=== PATIENT | male | born 1975 | race African-American/Black ===

== ENCOUNTER 2021-06-13 23:06 | Inpatient (IN) | payer OTHER ==
[~2021-06-13] VITALS: Ht 175.3 cm; Wt 70.8 kg
--- NOTE | 2021-06-13 23:14 | NUR ---
OLLIE 41 FROM HOMELESS ASSISTED FOR FOUND UNRESPONSIVE ON THE GROUND DUE TO OVERDOSE ON UNKNOWN DRUG. PT RECIEVED 4MG NASL NARCAN 2MG IV NARCAN RECEPTIONIST/TELEPHONE OPERATOR. PT AXO X 0 UPON ARRIVAL AND AGITATED. PT APPEARS TO HAVE ASPIRATED VOMITTUS UPON ARRIVAL AND CRACKLES NOTED BILATERALLY. PT HYPOXIC UPON ARRIVAL PLACED ON 15LPM NRB SATTING 75% ABND TACHY AT 135. PT CHANGED INTO A GOWN AND PLACED ON CHILD DEVELOPMENT INSTRUCTOR AND MD WAS AT THE BEDSIDE FOR EVALUATION.
[2021-06-13] MEDS ORDERED: HALOPERIDOL LACTATE INJ 5 MG/ML VIAL ONE (23:18)
[2021-06-13] MEDS ORDERED: ONDANSETRON HCL/PF 4 MG/2 ML VIAL ONE (23:23)
[2021-06-13] MEDS ORDERED: LIDOCAINE 2% JEL UROJET 10 ML MM ONE ×2 (23:23→23:30)
[2021-06-13] MEDS ORDERED: NALOXONE PREFILLED SYRINGE 2 MG/2 ML SYRINGE ONE (23:24)
[2021-06-13] MEDS ORDERED: IV NS 0.9% 1,000 ML BAG IV ONE (23:30)
[2021-06-13] MEDS ORDERED: HALOPERIDOL LACTATE INJ 5 MG/ML VIAL IM ONE (23:30)
[2021-06-13] MEDS ORDERED: ONDANSETRON HCL/PF 4 MG/2 ML VIAL IVP ONE (23:30)
[2021-06-13] MEDS ORDERED: NALOXONE HCL 4 MG in IV NS 0.9% 240 ML IV PRN (23:30)
--- NOTE | 2021-06-13 23:51 | NUR ---
RT PAGED FOR ABG
[2021-06-14] VITALS (38 sets, daily range): BP systolic 97–153; BP diastolic 63–92
[2021-06-14] LABS: BASOPHILS # (AUTO) 0.1 K/uL (0.0-0.2); BASOPHILS % (AUTO) 1.3 % (0.0-2.0); HEMATOCRIT 53 % (39-51); HEMOGLOBIN 17.3 g/dL (13.5-17.5); LYMPHOCYTES # (AUTO) 4.2 K/uL (0.8-4.8); LYMPHOCYTES % (AUTO) 48.7 % (20.0-44.0); MEAN CORPUSCULAR HGB CONC 33 g/dl (31.0-36.0); MEAN CORPUSCULAR VOLUME 94 fL (80-96); MONOCYTES # (AUTO) 0.1 K/uL (0.1-1.30); MONOCYTES % (AUTO) 0.8 % (2.0-12.0); NEUTROPHILS % (AUTO) 46.2 % (43.0-81.0); PLATELET COUNT (AUTO) 363 K/uL (150-450); RED BLOOD CELL COUNT(AUTO) 5.67 MIL/uL (4.5-6.0); WHITE BLOOD COUNT (AUTO) 8.7 K/uL (4.3-11.0)
[2021-06-14 00:01] LABS: BILIRUBIN,URINE Negative (NEGATIVE); COLOR,URINE YELLOW (YELLOW); LEUKOCYTE ESTERASE ,URINE Negative (NEGATIVE); NITRITE, URINE Negative (NEGATIVE); PROTEIN,URINE 100 mg/dl (NEGATIVE); UGLUCOSE 100 MG/DL mg/dL (NEGATIVE); UROBILINOGEN,URINE 0.2 EU/dL (0.2)
[2021-06-14] MEDS ORDERED: PROPOFOL 100 ML ONE (00:08)
--- NOTE | 2021-06-14 00:12 | NUR ---
RT Notes Pt orally intubated by ER with 7.0m ETT secured at 21cm at the lip line. Color change on CO2 detector noted. Mist in tube noted. Equally chest rise noted. Pt placed on mech vent on ordered settings AC, RR 14, VT 550, FI02 100%, PEEP +5. DENTAL THERAPIST done. Pt suctioned large amount of black to dark brown secretions. Will draw ABG in 30 mins per MD orders. Alarms set and audible. Ambubag at bedside. Vent plugged into red outlet. Will cont to monitor. Addendum: 06/14/21 at 0146 by TIN LARA RT Amended: Links added.
--- NOTE | 2021-06-14 00:15 | NUR ---
0012 INTUBATED: SIZE 7.0 AND 21 @ THE LIP AC 14 TIDAL VOLUME 550 FIO2 100% PEEP 5
[2021-06-14 00:18] LABS: BACTERIA,URINE Few /HPF (None Seen); RBC,URINE 21-50 /HPF (0-2)
[2021-06-14 00:19] LABS: CALCIUM OXALATE CRYSTALS,UR Moderate /HPF (None Seen); CALCIUM, SERUM 8.5 mg/dL (8.5-10.1); CARBON DIOXIDE 20 mmol/L (21-32); CHLORIDE 102 mmol/L (98-107); GLUCOSE 279 mg/dL (74-106); POTASSIUM 3.9 mmol/L (3.5-5.1); SODIUM SERUM 142 mmol/L (136-145); SQUAMOUS EPITHELIAL CELL,UR Few /HPF (None Seen); UREA NITROGEN, BLOOD 14 mg/dL (7-18)
[2021-06-14 00:21] LABS: SERUM AMMONIA 67 umol/L (11-32)
[2021-06-14 00:30] LABS: ALANINE AMINOTRANSFERASE 102 U/L (12-78); ALBUMIN 3.8 g/dL (3.4-5.0); ALCOHOL, BLOOD 68 mg/dL (0-0); ALKALINE PHOSPHATASE 173 U/L (46-116); ASPARTATE AMINOTRANSFERASE 200 U/L (15-37); BILIRUBIN,DIRECT 0.1 mg/dL (0.0-0.2); BILIRUBIN,TOTAL 0.2 mg/dL (0.2-1.0); TOTAL PROTEIN, SERUM 7.6 g/dL (6.4-8.2)
[2021-06-14] MEDS ORDERED: HYDROCODONE/APAP 5/325MG TABLET PO PRN (00:30)
[2021-06-14] MEDS ORDERED: Z GUARD REMEDY 2 OZ OINT TP PRN (00:30)
[2021-06-14] MEDS ORDERED: ACETAMINOPHEN 325 MG TABLET PO PRN (00:30)
[2021-06-14] MEDS ORDERED: ONDANSETRON HCL/PF 4 MG/2 ML VIAL IVP PRN (00:30)
[2021-06-14] MEDS ORDERED: MAGNESIUM HYDROXIDE 30 ML UDC PO PRN (00:30)
[2021-06-14] MEDS ORDERED: ZOLPIDEM TARTRATE 5 MG TABLET PO PRN (00:30)
[2021-06-14] MEDS ORDERED: MAG HYDROX/AL HYDROX/SIMETH 30 ML UDC PO PRN (00:30)
--- NOTE | 2021-06-14 01:00 | NUR ---
rate of mech vent setting increase to 20 per MD orders Addendum: 06/14/21 at 0147 by TIN LARA RT Amended: Links added.
[2021-06-14 01:03] LABS: ABG BASE EXCESS -17.3 mmol/L; ABG PH 7.008 (7.350-7.450); COHb 1.7 % (0.5-1.5); MetHb 0.3 % (0.0-1.5); O2Hb 92.1 % (94.0-97.0); SITE, ABG Left Radial
[2021-06-14 01:07] LABS: THYROID STIMULATING HORMONE 2.012 uIU/mL (0.358-3.74)
--- NOTE | 2021-06-14 01:09 | NUR ---
PT TAKEN TO CT
--- NOTE | 2021-06-14 01:22 | NUR ---
PT RETURNED FROM CT
--- NOTE | 2021-06-14 01:35 | NUR ---
PAGED DR MAURICIO FOR UPDATE PER DR JIN'S ORDER
--- NOTE | 2021-06-14 01:52 | NUR ---
ROOM 253
[2021-06-14] MEDS ORDERED: IV NS 0.9% 50 ML IV SCH (02:00)
--- NOTE | 2021-06-14 02:00 | NUR ---
REPORT GIVEN TO NOLA
[2021-06-14] MEDS ORDERED: SUCCINYLCHOLINE CHLORIDE 20 MG/ML VIAL IV ONE ×2 (02:30→11:46)
[2021-06-14] MEDS ORDERED: PROPOFOL 100 ML IV ONE (02:30)
[2021-06-14] MEDS ORDERED: ZOSYN IVPB 3.375 G in IV D5W 50ml IV ONE (02:30)
[2021-06-14] MEDS ORDERED: ETOMIDATE 2 MG/ML VIAL IV ONE ×2 (02:30→11:46)
--- NOTE | 2021-06-14 02:34 | NUR ---
PT TRANSPORTED TO [facility] ON MONITOR PER ACLS PROTOCOL WITHOUT INCIDENT.
--- NOTE | 2021-06-14 02:35 | NUR ---
RECEIVED PT FROM ER VIA [facility] SEDATED ON ETT 7/ LIP 21 CM VENT SETTING PER MD FIO2 100% SPO2 99% NO SIGN OF RESPIRATORY DISTRESS NOTED, HAVE OGTUBE ON PLACE CLAMPED WITH COFFEE GROUND RESIDUAL NOTED, SAFELY TRANSFER FROM RKINSEY TO BED HOOKED TO BEDSIDE MONITOR WITH READING SINUS TACHY 120'S, V/S CHECKED AND RECORDED, PT HAVE RAC#18 AND LAC# 18 IV WITH ONGOING PROPOFOL @ 60 MCG/KG/MIN, HAVE SHIN CATHETER WITH YELLOW URINE DRAINING VIA GRAVITY, HEAD TO TOE ASSESSMENT DONE, CERVICAL COLLAR NOTED SAW SOME ABRASION ON PT CHIN, ADMISSION ASSESSMENT DONE UNABLE TO GET MORE INFORMATION FROM PT DUE TO PT IS SEDATED, PT IS HOMELESS WITH NO CONTACT, BILATERAL SOFT RESTRAINTS INITIATED FOR SELF EXTUBATION PRECAUTION WITH MD ORDER, BED ON LOWEST POSITION AND LOCKED SIDE RAILS UP X2 WILL CONT TO MONITOR
[2021-06-14] MEDS: PROPOFOL 100 ML IV PRN ×6 (02:49→22:04)
[2021-06-14] MEDS ORDERED: PIPERACILLIN /TAZOBACTAM 3.375 G VIAL IV ONE (02:56)
[2021-06-14] MEDS ORDERED: ENOXAPARIN SODIUM 40 MG/0.4 ML DISP.SYRIN SQ SCH (03:00)
[2021-06-14] MEDS ORDERED: VANCOMYCIN 1.5 GM in IV D5W 500ml IV ONE (03:00)
[2021-06-14] MEDS ORDERED: VANCOMYCIN 1 GM VIAL ONE ×2 (03:02)
[2021-06-14] MEDS: IV NS 0.9% 1,000 ML IV PRN (03:30)
--- NOTE | 2021-06-14 04:00 | NUR ---
ETT advance 2cm per MD order. ETT now secured at 23CM at the lip line. Addendum: 06/14/21 at 0422 by TIN LARA RT Amended: Links added.
[2021-06-14 05:26] LABS: ALBUMIN 3.2 g/dL (3.4-5.0); BILIRUBIN,DIRECT 0.1 mg/dL (0.0-0.2); BILIRUBIN,TOTAL 0.5 mg/dL (0.2-1.0); TOTAL PROTEIN, SERUM 6.2 g/dL (6.4-8.2)
[2021-06-14 06:35] LABS: ABG BASE EXCESS -2.7 mmol/L; ABG PCO2 48.5 mmHg (35.0-45.0); ABG PH 7.313 (7.350-7.450); ABG PO2 151.1 mmHg (75.0-100.0); COHb 0.4 % (0.5-1.5); MetHb 0.6 % (0.0-1.5); O2Hb 98.1 % (94.0-97.0); SITE, ABG Right Radial
--- NOTE | 2021-06-14 06:52 | NUR ---
PT ON BED SEDATED ON ETT/VENT SETTING PER MD FIO2 50% SPO2 98% STILL ON PROPOFOL 60 MCG/KG/MIN VIA LAC IV, SINUS TACHY ON MONITOR BED ON LOWEST POSITION AND LOCKED SIDE RAILS UP STILL ON BILATERAL SOFT WRIST RESTRAINTS FOR SELF EXTUBATION PRECAUTION, BWILL ENDORSED TO AM SHIFT NURSE
--- NOTE | 2021-06-14 07:30 | NUR ---
RN NOTES PT FOUND SEMI EDDY'S DISPLAYING NO S/S OF DISTRESS, FLACC = 0 AND BILATERAL RISE AND FALL OF THE CHEST OBSERVED WHILE PT IS INTUBATED ON MECHANICAL VENT. KAUSHAL'S 3 SEDATION LEVEL. PT IS RESTRAINED BILATERAL SOFTWRISTS, PULSES PALAPTED BILATERALLY AND CAP REFILL < 3 SECONDS BILTERALLY. R AC 18G AND L AC 18G IV PATIENT AND INTACT. MILD ABRASIONS OBSERVED ON FACE (CHIN). SHIN CATH BELOW PATIENT DRAINING BY GRAVITY. RESIDUAL OF GASTRIC CONTENT IS APPROX. 15 ML. VSS, RN WILL MONITOR AND TREAT THROUGHOUT SHIFT. SAFETY MEASURES IN PLACE, BED LOCKED AND IN LOWEST POSITION, SIDE RAILS UPX3, CALL LIGHT WITHIN REACH, BED ALARM ARMED.
[2021-06-14] MEDS: PANTOPRAZOLE 40 MG VIAL IV SCH (08:42)
[2021-06-14] MEDS: LACTULOSE 10 G/15 ML UDC (PYXIS) GT SCH ×2 (08:42→17:54)
[2021-06-14] MEDS ORDERED: AZITHROMYCIN 500 MG in IV D5W 250 ML IV SCH (09:00)
[2021-06-14] MEDS ORDERED: CEFTRIAXONE 1 G in IV D5W 50 ML IV SCH (09:00)
[2021-06-14] MEDS: PIPERACILLIN /TAZOBACTAM 3.375 G in IV D5W 100 ML IV SCH ×2 (10:25→17:55)
--- NOTE | 2021-06-14 12:34 | NUR ---
vent changes below per dr. Saenz for weaning trial: CPAP 5 PS 15 RN AWARE ON VENT CHANGES MADE. Addendum: 06/14/21 at 1235 by CALVIN DANG RT Amended: Links added.
[2021-06-14 13:35] LABS: ABG BASE EXCESS -4.1 mmol/L; ABG OXYGEN SATURATION 97.8 % (92.0-98.5); ABG PCO2 51.1 mmHg (35.0-45.0); ABG PH 7.277 (7.350-7.450); COHb 0.2 % (0.5-1.5); MetHb 0.5 % (0.0-1.5); O2Hb 97.1 % (94.0-97.0); SITE, ABG Right Radial
--- NOTE | 2021-06-14 13:46 | NUR ---
BACK TO AC MODE PER DR. AVILA Addendum: 06/14/21 at 1346 by CALVIN DANG RT Amended: Links added.
[2021-06-14] MEDS: VANCOMYCIN 1 GM in IV D5W 250 ML IV SCH (16:16)
--- NOTE | 2021-06-14 19:00 | NUR ---
RN NOTES PT FOUND SEMI FOWLERS DISPLAYING NO S/S OF DISTRESS, FLACC = 0 AND BILATERAL RISE AND FALL OF THE CHEST IS OBSERVED. KAUSHAL'S = 3. R FA 20G AND L AC 18G IV PATIENT AND INTACT. SHIN CATH BELOW PATIENT DRAINING BY GRAVITY. BILATERAL SOFT RESTRAINTS APPLIED, PULSES PALPATED BILATERALLY, CAP REFILL < 3 SECONDS BILATERALLY. VSS, REPORT AND SBAR GIVEN TO CORRECTION OFFICER RN. ALL QUESTIONS ANSWERED. SAFETY MEASURES IN PLACE, BED LOCKED AND IN LOWEST POSITION, SIDE RAILS UPX3, CALL LIGHT WITHIN REACH, BED ALARM ARMED. PT ENDORSED IN STABLE CONDITION FOR SAMANTHA.
--- NOTE | 2021-06-14 20:05 | NUR ---
RECEIVED PT INTUBATED 7.0 ETT SECURED AT 23CM AT THE LIP. NO RESP DISTRESS NOTED, PT TOLERATING VENT SETTINGS. VENT ALARMS SET AND AUDIBLE. AMBU BAG AT BEDSIDE. CONTINUE TO MONITOR. Addendum: 06/14/21 at 2007 by TARA MEYER RT Amended: Links added.
[2021-06-14] MEDS: ENOXAPARIN SODIUM 40 MG/0.4 ML DISP.SYRIN SQ SCH (21:48)
[2021-06-15] VITALS (44 sets, daily range): BP systolic 110–169; BP diastolic 82–113
[2021-06-15] MEDS: IV NS 0.9% 1,000 ML IV PRN ×2 (00:39→15:56)
[2021-06-15] MEDS: PROPOFOL 100 ML IV PRN ×6 (00:54→21:42)
[2021-06-15] MEDS: PIPERACILLIN /TAZOBACTAM 3.375 G in IV D5W 100 ML IV SCH ×3 (01:59→18:07)
[2021-06-15] MEDS: VANCOMYCIN 1 GM in IV D5W 250 ML IV SCH ×3 (03:58→23:05)
[2021-06-15 05:03] LABS: BASOPHILS % (AUTO) 0.3 % (0.0-2.0); EOSINOPHILS % (AUTO) 1.9 % (0.0-6.0); HEMATOCRIT 43 % (39-51); HEMOGLOBIN 14.6 g/dL (13.5-17.5); LYMPHOCYTES # (AUTO) 1.1 K/uL (0.8-4.8); MEAN CORPUSCULAR HGB CONC 34 g/dl (31.0-36.0); MEAN CORPUSCULAR VOLUME 91 fL (80-96); MONOCYTES # (AUTO) 0.4 K/uL (0.1-1.30); MONOCYTES % (AUTO) 3.5 % (2.0-12.0); NEUTROPHILS # (AUTO) 9.2 K/uL (1.8-8.9); NEUTROPHILS % (AUTO) 84.3 % (43.0-81.0); PLATELET COUNT (AUTO) 203 K/uL (150-450); RED BLOOD CELL COUNT(AUTO) 4.72 MIL/uL (4.5-6.0); WHITE BLOOD COUNT (AUTO) 10.9 K/uL (4.3-11.0)
[2021-06-15 05:29] LABS: THYROID STIMULATING HORMONE 1.331 uIU/mL (0.358-3.74)
[2021-06-15 05:42] LABS: CALCIUM, SERUM 8.5 mg/dL (8.5-10.1); CREATININE 1.4 mg/dL (0.6-1.3); MAGNESIUM 2.2 mg/dL (1.8-2.4); PHOSPHORUS 2.6 mg/dL (2.5-4.9); POTASSIUM 3.6 mmol/L (3.5-5.1)
--- NOTE | 2021-06-15 07:30 | NUR ---
RN AM NOTES PT IN BED, SEMI EDDY'S DISPLAYING NO S/S OF DISTRESS, FLACC = 0 AND BILATERAL RISE AND FALL OF THE CHEST OBSERVED WHILE PT IS INTUBATED ON MECHANICAL VENT. KAUSHAL'S 3 SEDATION LEVEL. PT IS RESTRAINED BILATERAL SOFTWRISTS, PULSES PALPATED BILATERALLY AND CAP REFILL < 3 SECONDS BILATERALLY. R AC 18G AND L AC 18G IV PATIENT AND INTACT. MILD ABRASIONS OBSERVED ON FACE (CHIN). SHIN CATH BELOW PATIENT DRAINING BY GRAVITY. RESIDUAL OF GASTRIC CONTENT IS APPROX. 15 ML. VSS, RN WILL MONITOR AND TREAT THROUGHOUT SHIFT. SAFETY MEASURES IN PLACE, BED LOCKED AND IN LOWEST POSITION, SIDE RAILS UPX3, CALL LIGHT WITHIN REACH, BED ALARM ARMED. WILL CONTINUE TO MONITOR
[2021-06-15] MEDS: LACTULOSE 10 G/15 ML UDC (PYXIS) GT SCH ×2 (09:20→18:07)
[2021-06-15] MEDS: PANTOPRAZOLE 40 MG VIAL IV SCH (09:20)
--- NOTE | 2021-06-15 09:36 | NUR ---
RN NOTES DR. NDIAYE NOTIFIED, PT'S BP IS 157/101, NO BP MAINTENANCE, PER DR. NDIAYE IT'S OK, NNO.
--- NOTE | 2021-06-15 19:00 | NUR ---
rn notes PATIENT AWAKE AND AGITATED. INCREASED PROPOFOL TO 50 MCG
--- NOTE | 2021-06-15 19:06 | NUR ---
RN NOTES PATIENT VERY COMBATIVE. PROPOFOL INCREASED TO 70 MCG
--- NOTE | 2021-06-15 19:28 | NUR ---
RN NOTES ALL NEEDS MET AT THIS TIME. PATIENT STABLE. NO SOB, NOT IN ANY DISTRESS. TOLERATING VENT SETTING WELL. SAFETY MEASURES IN PLACE. ENDORSED TO NEXT SHIFT FOR SAMANTHA.
--- NOTE | 2021-06-15 19:40 | NUR ---
APPETIZER PACKER OPENING NOTE REC'D PT IN BED, AGITATED, COMBATIVE, PT PROPOFOL NOW AT 70MCG/KG/MIN. AT THIS TIME PT IS SEDATED, ORALLY INTUBATED, ON MECHANICAL VENTILATION, AC 20 TIDAL VOL 550 FIO2 40% PEEP 5 TOLERATING WELL, O2 SAT 100% NO S/S OF RESP DISTRESS NOTED, PT HAS SHIN CATH DRAINING TO GRAVITY, PT IV SITES FLUSHED, PATENT. IVF RUNNING AT 75ML/HR ORDERED. ORAL CARE DONE, PT AFEBRIL. SAFETY MEASURES IN PLACE HOB ELEVATED. SIDE RAILS UP X3, BED LOCKED IN LOWEST POSITION, SOFT SHELBI WRIST RESTRAINTS IN PLACE, SKIN CIRCULATION CHECKED. WILL CONT TO MONITOR PT THROUGHOUT SHIFT.
--- NOTE | 2021-06-15 20:03 | NUR ---
RECEIVED PT INTUBATED 7.0 ETT SECURED AT 23CM AT THE LIP. NO RESP DISTRESS NOTED, PT TOLERATING VENT SETTINGS. VENT ALARMS SET AND AUDIBLE. AMBU BAG AT BEDSIDE. CONTINUE TO MONITOR. Addendum: 06/15/21 at 2002 by TARA MEYER RT Amended: Links added.
[2021-06-15] MEDS: ENOXAPARIN SODIUM 40 MG/0.4 ML DISP.SYRIN SQ SCH (21:06)
[2021-06-16] VITALS (39 sets, daily range): BP systolic 102–155; BP diastolic 69–107
[2021-06-16] MEDS: PROPOFOL 100 ML IV PRN ×9 (00:10→21:55)
[2021-06-16] MEDS: PIPERACILLIN /TAZOBACTAM 3.375 G in IV D5W 100 ML IV SCH ×3 (01:12→17:05)
[2021-06-16 04:39] LABS: BASOPHILS % (AUTO) 0.3 % (0.0-2.0); EOSINOPHILS % (AUTO) 3.6 % (0.0-6.0); HEMATOCRIT 43 % (39-51); HEMOGLOBIN 14.6 g/dL (13.5-17.5); LYMPHOCYTES # (AUTO) 0.8 K/uL (0.8-4.8); LYMPHOCYTES % (AUTO) 6.7 % (20.0-44.0); MEAN CORPUSCULAR HGB CONC 34 g/dl (31.0-36.0); MEAN CORPUSCULAR VOLUME 91 fL (80-96); MONOCYTES # (AUTO) 0.4 K/uL (0.1-1.30); MONOCYTES % (AUTO) 3.7 % (2.0-12.0); NEUTROPHILS # (AUTO) 9.6 K/uL (1.8-8.9); NEUTROPHILS % (AUTO) 85.7 % (43.0-81.0); PLATELET COUNT (AUTO) 221 K/uL (150-450); RED BLOOD CELL COUNT(AUTO) 4.75 MIL/uL (4.5-6.0); WHITE BLOOD COUNT (AUTO) 11.2 K/uL (4.3-11.0)
[2021-06-16] MEDS: IV NS 0.9% 1,000 ML IV PRN ×2 (04:52→17:10)
[2021-06-16 04:59] LABS: ALBUMIN 2.7 g/dL (3.4-5.0); BILIRUBIN,TOTAL 0.8 mg/dL (0.2-1.0); CALCIUM, SERUM 8.6 mg/dL (8.5-10.1); POTASSIUM 3.7 mmol/L (3.5-5.1); TOTAL PROTEIN, SERUM 6.5 g/dL (6.4-8.2)
[2021-06-16] MEDS ORDERED: IV NS 0.9% 250 ML IV PRN (06:00)
--- NOTE | 2021-06-16 06:43 | NUR ---
RN CLOSING NOTE PT REMAINS ON SEDATION AT 75 MCG/KG/MIN, TITRATED TO KEEP PT COMFORTABLE, CALM, SEDATED. BED BATH DONE, TURN AND REPOSITIONED Q2HRS. PT REMAINS ON RESTRAINTS TO PROTECT FROM INJURY. ORAL CARE PERFORMED.PT REMAINS AFEBRILE. AT THIS TIME IVF STILL RUNNING ORDERED. SAFETY MEASURES IN PLACE. ALL DUE MEDS GIVEN ORDERED. NO S/S OF PAIN. HOB ELEVATED SIDE RAILS UP X2 BED LOCKED IN LOWEST POSITION. VENT SETTINGS REMAIN UNCHANGED. PT TOLERATING SETTINGS AT THIS TIME. NO RESP DISTRESS NOTED. PT HR ST 110-120S. WILL ENDORSE TO DAY SHIFT FOR CONTINUATION OF CARE. WILL MONITOR UNTIL END OF SHIFT.
--- NOTE | 2021-06-16 07:00 | NUR ---
WOUND CARE CONSULT: REVIEWED CHART, NURSING DOCUMENTATION AND PHOTO WHICH INDICATES DRY ABRASION TO CHIN, PRESENT ON ADMISSION. RECOMMENDATIONS MADE FOR SKIN PROTECTION. DISCUSSED WITH NURSING STAFF. CURRENT RHIANNA SCORE IS 15. WILL SEE PRN. IN AGREEMENT WITH PLAN OF CARE.
--- NOTE | 2021-06-16 07:30 | NUR ---
BUILDING MECHANIC OPENING NOTES Patient received sedated and on mechanical ventilator settings of ac 20, TV 550, Fi02 of 40% and PEEP of 5. Patient is running propofol at 75 mcg/kg/min and Normal saline at 75 ml/hour zoë left ac 18 gauze. Patient also noted with right forearm 20 gauze saline lock. Gusman cath noted with clear yellow urine.Bilateral wrist restraints noted to both wrists. No s/s of skin breakdown. Per report OGT clamped. Will continue to monitor. Call light with in reach.
[2021-06-16] MEDS: LACTULOSE 10 G/15 ML UDC (PYXIS) GT SCH ×2 (08:20→16:40)
[2021-06-16] MEDS: VANCOMYCIN 1 GM in IV D5W 250 ML IV SCH (08:20)
[2021-06-16] MEDS: PANTOPRAZOLE 40 MG TABLET.DR PO SCH (08:20)
--- NOTE | 2021-06-16 09:00 | NUR ---
Patient's diprivan titrated per Dr Jefferson's orders. Patient currently at 50 mcg/kg/min and will monitor.
--- NOTE | 2021-06-16 10:00 | NUR ---
Per Dr Jefferson to keep patient sedated and if patient is agitated to increased diprivan as needed. Patient currenlt stable on 50 mcg/kg/min. Patient will be monitored.
[2021-06-16] MEDS ORDERED: JEVITY 1.2 CAL 1,000 ML BOTTLE PEG PRN (11:30)
--- NOTE | 2021-06-16 12:03 | NUR ---
Patient's diprivan titrated to 80 mcg/kg/min due to patient's behavior and restlessness. Patient noted with kicking the bed with his legs. Patient provided decreased stimuli. Will monitor.
--- NOTE | 2021-06-16 13:49 | NUR ---
"SW attempted to meet with pt. Pt. is currently sedated, SW was not able to interview pt. SW spoke with pt.'s nurse and notified her that SW left resources in pt.'s chart [Homeless resources, Homeless waiver, and substance abuse resources]. Resources provided: Year-round shelters: [place] [address] [place] [address] ; [facility] [place] [address] [place] [address]; [place] [facility] [id number] [facility] [address] Winter Shelters: [facility] Provider: [facility] [place] Address: [address] [place], [address] # of Beds: 47 Population Served: [facility] 6 | [facility] [place] Mejia [place] Provider: [facility] Address: [address], [address] # of Beds: 66 Population Served: [facility] [place] Provider: First [facility] Serve Address: [address] [facility], [address] # of Beds: 56 Population Served: [facility] Terence [place] Provider: /[facility] Address: [address] [place] [address], [address] # of Beds: 49 Population Served: [facility] 8 | [facility] Provider: [facility] to Serve Address: [address] [facility], [address] # of Beds: 37 Population Served: [facility] Hygiene: [facility]: [address] [place] ; [facility] [address] [facility] ; [facility] [address] [place] [address] . Food Resources: [place] [facility] at [facility]- [address] [place]; Meet Each Need with Dignity ([facility]) [address] [address] [place]; [facility] Food [facility] [address] [place] [facility]; [facility] [address] [place]. Mental Health resources provided: [facility] [address] [place], [place] [phone] ; [facility] [address] [facility] [address], [place] [address] ; [facility] Mental [facility] [address] [place], [place] [phone] ; [facility] [address] [place], [place] [phone] Healthcare Clinics: [facility] [address] [facility], [address] [place]. [place] ; [facility] [address] [facility] [address] [place] [address]; [facility] [address] [facility] [place] [address] [phone] Counseling--Outpatient [facility] [address] [facility], [place] [address] (Specializes in in-depth psychotherapy for emotional distress: anxiety, depression, interpersonal conflicts, life transitions, childhood abuse) [facility] [address] [place] [address] (Assist with solving problem marital difficulties, separation & divorce, aging parents, & grief, chronic & terminal illness) [facility] [address] [place] [address] (Deal with loss & grief, anxiety, marital difficulties) Homebound/Mental Health Services [address] [facility], [address] [place], [place] [phone] (Provide in-home mental services to people who are incapable of leaving their homes) [facility]eds of the Elderly Senior Service/Resource Center [address] [place] [address] [facility] [address] [facility] [place] [address] PSYCHIATRIC OUTPATIENT SERVICES [facility] Partial Hospitalization and Intensive Outpatient Program (Managed Care and [place] Only)[address] [place] [address] [facility] [phone] [facility] Partial Hospitalization and Outpatient [address] [place], [place] [phone] [facility] [place] [id number] [facility] [address] [place], [place] [phone] [facility] Partial Hospitalization and Outpatient [id number] eliUniversity of Maryland Rehabilitation & Orthopaedic Instituteflora, [phone] Substance Abuse resources provided included: [facility] Substance Abuse Self-Helpline ([facility]) ; C[facility]HELP [address] [facility]. [place] [address] ; [facility] [address] [facility] [address] ; [facility] Rehabilitation Program [address] [place] [address] vd[facility] [address] ; [facility] [address] [facility] [phone] ; [facility] [address] [facility] [address] ; [facility] [address] [facility] [address] ; [facility] Substance Abuse Helpline([facility])-[facility] ; [facility] ; [facility] [place]; [facility] [place]; [facility] [place]; [facility] [place]; [place] [facility]; [facility]; [facility] [place]; [facility], [facility]. Mena Hess; Alcoholics Anonymous -SFV; Stevie ; Marijuana Anonymous -SFV; Narcotics Anonymous www.na.org;"
--- NOTE | 2021-06-16 18:56 | NUR ---
HINGING MACHINE OPERATOR CLOSING NOTES Patient received sedated and on mechanical ventilator settings of ac 20, TV 550, Fi02 of 40% and PEEP of 5. Patient is running propofol at 75 mcg/kg/min and Normal saline at 75 ml/hour to left ac 18 gauze. Patient also noted with right forearm 20 gauze saline lock. Gusman cath noted with clear yellow urine with urine output of 1600 cc during shift.Bilateral wrist restraints noted to both wrists. No s/s of skin breakdown. Endorsed to next shift. Bed is in lowest and locked position.
--- NOTE | 2021-06-16 19:30 | NUR ---
RN OPENING NOTES: RECEIVED SEDATED PT IN BED IN NO S/SX OF ACUTE DISTRESS AT THIS TIME. NO SOB NOTED. PATIENT'S BREATHING IS EVEN AND UNLABORED. PATIENT ON MECHANICAL VENT; SETTINGS PRESCRIBED; PT TOLERATED WELL. AMBU BAG AT BED SIDE ALARMS SET PER PROTOCOL AND AUDIBLE. VENT PLUGGED IN TO RED OUTLET. WITH OGT IN PLACED, PLACEMENT VERIFIED VIA AUSCULTATION CONNECTED TO TUBE FEEDING OF JEVITY 1.2 RECEIVED @30ML (GOAL RATE OF 45ML/[id number]); TOLERATES WELL. NOTED IV SITE ON L AC#18 AND R FA #20 ;BOTH PATENT, INTACT AND FLUSHING WELL; NO S/S OF INFECTION OR INFILTRATION. WITH IV FLUID RUNNING ORDERED (NS @75ML/HR). PT HAS A RUNNING PROPOFOL DRIP RECEIVED AT 75MCG/KG/MIN MONITORED AND TITRATED PER PROTOCOL. SHIN CATH IN PLACE, MODERATE URINE OUTPUT NOTED. WITH BILATERAL SOFT RESTRAINTS IN PLACED, MONITORED AND ASSESSED PER PROTOCOL. SAFETY MEASURES HAVE BEEN PROVIDED AND IMPLEMENTED. PATIENT BED ALARM IS ON. HEAD OF BED ELEVATED. BED IS LOCKED, IN LOWEST POSITION AND SIDE RAILS UP. CALL LIGHT WITHIN REACH OF THE PATIENT. APPLICABLE ISOLATION PRECAUTIONS IN PLACE. WILL CONTINUE TO MONITOR AND REASSESS FOR ANY CHANGES AND WILL CARRY OUT ANY ONGOING AND ACTIVE MD ORDER.
--- NOTE | 2021-06-16 20:19 | NUR ---
RN NOTES RECEIVED CALL FROM ESVIN CANSECO ([phone]) SHE MENTIONED THAT SHE IS PT'S FAMILY AND WANTS TO BE PLACED EMR TRAINER / PERSON TO BE NOTIFIED ABOUT PT. RN ACKNOWLEDGED, NO PT UPDATE GIVEN AT THIS TIME AND CALL TRANSFERRED TO ADMITTING DEPT FOR RECORD UPDATE. LABEL SEWER MADE AWARE.
[2021-06-16] MEDS: ENOXAPARIN SODIUM 40 MG/0.4 ML DISP.SYRIN SQ SCH (21:51)
[2021-06-17] VITALS (36 sets, daily range): BP systolic 98–160; BP diastolic 64–99
--- NOTE | 2021-06-17 | NUR ---
RN NOTES PATIENT REMAINED TO BE IN NO SIGNS OF ACUTE RESPIRATORY DISTRESS;WILL CONTINUE TO MONITOR AND REASSESS FOR ANY CHANGES THROUGHOUT THE SHIFT.
[2021-06-17] MEDS: PROPOFOL 100 ML IV PRN ×5 (00:29→12:30)
[2021-06-17] MEDS: PIPERACILLIN /TAZOBACTAM 3.375 G in IV D5W 100 ML IV SCH ×3 (01:00→17:12)
--- NOTE | 2021-06-17 04:00 | NUR ---
RN NOTES PATIENT REMAINED TO BE IN NO SIGNS OF ACUTE RESPIRATORY DISTRESS , VITAL SIGNS STABLE AT THIS TIME. REGULAR TURNING AND REPOSITIONING DONE Q2H AND SUCTIONING RENDERED.AM PATIENT CARE DONE. WILL CONTINUE TO MONITOR AND REASSESS FOR ANY CHANGES THROUGHOUT THE SHIFT.
[2021-06-17] MEDS: IV NS 0.9% 1,000 ML IV PRN ×2 (05:00→17:21)
[2021-06-17 05:17] LABS: CALCIUM, SERUM 8.5 mg/dL (8.5-10.1); CREATININE 1.1 mg/dL (0.6-1.3); POTASSIUM 3.4 mmol/L (3.5-5.1)
--- NOTE | 2021-06-17 06:57 | NUR ---
RN CLOSING NOTE: PATIENT REMAINS IN ROOM IN NO SIGNS OF RESPIRATORY DISTRESS, PATIENT STILL ON MECH VENT; SETTINGS PRESCRIBED;TOLERATING WELL SATURATING @ >95% SP02. SAFETY MEASURES IMPLEMENTED, BED IN LOWEST POSITION, LOCKED, SIDE RAILS UP, CALL LIGHT WITHIN REACH. ALL NEEDS AND ORDERS ADDRESSED DURING THE SHIFT. IV ACCESS MAINTAINED INTACT, SECURED AND FLUSHING WELL. ALL DUE MEDS GIVEN ORDERED & SCHEDULED ; PATIENT TOLERATED WELL. STILL WITH ONGOING DRIP PROPOFOL DRIP @95MCG/KG/MIN ;RUNNING,MONITORED AND ADJUSTED PER PROTOCOL PATIENT KEPT CLEAN AND COMFORTABLE WITHIN THE SHIFT. PATIENT ENDORSED TO INCOMING SHIFT RN WITH STABLE VITAL SIGN AND FOR CONTINUITY OF CARE.
--- NOTE | 2021-06-17 07:28 | NUR ---
PITCH FLAKER OPENING NOTES Patient received sedated and on mechanical ventilator settings of ac 20, TV 550, Fi02 of 40% and PEEP of 5. Patient is running propofol at 95 mcg/kg/min and Normal saline at 75 ml/hour to left ac 18 gauze. Patient also noted with right forearm 20 gauze saline lock. Gusman cath noted with dark hortensia urine.Bilateral wrist restraints noted to both wrists. No s/s of skin breakdown. Ogtube feeding noted running at 30 cc/hou5r. HOB kept elevated. Will continue to monitor. Call light with in reach.
[2021-06-17] MEDS: PANTOPRAZOLE 40 MG TABLET.DR PO SCH (08:12)
[2021-06-17] MEDS: LACTULOSE 10 G/15 ML UDC (PYXIS) GT SCH ×2 (08:12→16:36)
[2021-06-17] MEDS ORDERED: POTASSIUM CHLORIDE 20 MEQ POWDER PACKET PO SCH (08:30)
--- NOTE | 2021-06-17 13:24 | NUR ---
Received order from Dr Ryder for CPAP MODE OF 5 PSV 8 and to decrease the diprivan Orders noted and RT aware
--- NOTE | 2021-06-17 13:55 | NUR ---
Patient awake and alert and follow commands after titrating down diprivan and stopped. Currently on CPAP setting and 02 sat 99%. Will monitor. Call light with in reach.
[2021-06-17 14:34] LABS: ABG BASE EXCESS -2.5 mmol/L; ABG OXYGEN SATURATION 98.8 % (92.0-98.5); ABG PCO2 39.9 mmHg (35.0-45.0); ABG PH 7.369 (7.350-7.450); ABG PO2 144.1 mmHg (75.0-100.0); AaDO2 95.2 mmHg; COHb 0.2 % (0.5-1.5); MetHb 0.5 % (0.0-1.5); O2Hb 98.1 % (94.0-97.0); SITE, ABG Right Radial
--- NOTE | 2021-06-17 14:40 | NUR ---
Patient's abg drawn and lab relayed to MD Ryder and patient extubated. Patient placed on 3 liters o2 via n/c jericho well.
--- NOTE | 2021-06-17 18:49 | NUR ---
PARASITOLOGIST CLOSING NOTES Patient currently in bed and anxious and verbalizes going home and to get out of bed. Noted with trying to remove all lines. Decreased stimuli and patient education provided but patient stated he wants to leave. Orders in place for patient's safety. Patient is on 3lpm via n/c with o2 sat of 98%.Normal saline running to left ac 18 gauze at 75 cc/hour. Patient also noted with right forearm 20 gauze saline lock. Gusman cath noted with dark hortensia urine with output of 450 cc.Bilateral wrist restraints noted to both wrists. No s/s of skin breakdown. HOB kept elevated. Will continue to monitor. Call light with in reach. Bed is in lowest and locked position. Safety measures in place.
--- NOTE | 2021-06-17 19:30 | NUR ---
RN OPENING NOTE RECEIVED PATIENT IN BED. A/OX2-3. ON OXYGEN 3L VIA NASAL CANNULA. RESPIRATIONS ARE EVEN AND UNLABORED. NO S/SS OB NOTED. PATIENT CONTINUES TO REMOVE OXYGEN DESPITE EDUCATING THE PATIENT THE IMPORTANCE. PATIENT IS COUGHING, SECRETIONS ARE THIN AND CLEAR. NO C/O PAIN AT THIS TIME. IN NO APPARENT DISTRESS. TELE MONITOR READS SINUS TASCHYCARDIA HR 104. IV ACCESS IN RFA#20 AND LAC#18 RUNNING NS@75ML/HR.SHIN CATHETER IS PRESENT, DRAINING TO GRAVITY, URINE IS JEANNINE/ TEA COLOR. BILATERAL SOFT WRSIT RESTRAINTS ARE PRESENT, NO REDNESS, GOOD CAP REFILL. PATIENT IS VERY UPSET ABOUT RESTRAINTS INFORMED HIM ON WHY THEY ARE IN USE. PATIENT IS YELLING, KICKING AND VERBALLY ABUSIVE, TRYING TO REMOVE IV LINES, BP CUFF, TELE MONITOR AND O2 SENSOR. BED IS LOW AND LOCKED, HOB ELEVATED IN SEMI FOWLERS, SIDE RIALS UP X2, CALL LIGHT WITHIN REACH.
[2021-06-17] MEDS: ENOXAPARIN SODIUM 40 MG/0.4 ML DISP.SYRIN SQ SCH (21:00)
--- NOTE | 2021-06-17 21:14 | NUR ---
RN NOTE PATIENT REFUSED LOVENOX 40MG. EDUCATED THE PATIENT OF MEDICATION , CONTINUES TO REFUSE.
--- NOTE | 2021-06-17 23:47 | NUR ---
RN NOTE INFORMED DR. MAURICIO THAT PATIENT DOES NOT HAVE DIET ORDER. PATIENT PASSED RN SWALLOW SCREEN. WAS EXTUBATED TODAY. RECEIVED ORDER FOR CARDIAC DIET. ORDER READ BACK NOTED AND CARRIED OUT.
--- NOTE | 2021-06-17 23:57 | NUR ---
RN NOTE RECEIVED ORDER TO PLACE ST EVAL. ORDER READ BACK NOTED AND CARRIED OUT.
[2021-06-18] VITALS (10 sets, daily range): BP systolic 112–130; BP diastolic 60–94
[2021-06-18] MEDS: PIPERACILLIN /TAZOBACTAM 3.375 G in IV D5W 100 ML IV SCH (02:10)
--- NOTE | 2021-06-18 04:23 | NUR ---
RN NOTE PATIENT REFUSED AM LABS. EDUCATED ON IMPORTANCE. CONTINUES TO REFUSE. FEELS "ITS GOING TO GIVE THEM A REASON FOR ME TO STAY" PATIENT STATES HE WANTS TO IN AM.
--- NOTE | 2021-06-18 05:30 | NUR ---
RN NOTE FATHER CALLED AND RECEIVED AN UPDATE ON PATIENT. IMFORMED THAT PATIENT WANTS TO LEAVE, STATES HE WANTS HIS SON TO STAY UNTIL DISCHARGE. WANTS TO SPEAK WITH SON ON PHONE BUT THE PHONE JUANITA DOES NOT WORK IN ROOM. PLACED AND ENGINEERINE WORK ORDER FOR IT TO BE FIXED.
[2021-06-18] MEDS: IV NS 0.9% 1,000 ML IV PRN (06:29)
--- NOTE | 2021-06-18 06:58 | NUR ---
RN NOTE PATIENTS CALL LIGHT WAS ON WHEN I CAME ONTO THE UNIT. PATIENT REQUESTING TO LEAVE AMA. RECEIVED REPORT FROM DENTAL SALES REPRESENTATIVE AND ALERTED MD.
--- NOTE | 2021-06-18 07:20 | NUR ---
RN CLOSING NOTE PATIENT RESTING IN BED. A/OX2-3. TOLERATING ROOM AIR. NO SOB NOTED. NO C/O PAIN THROUGHOUT NIGHT. NO DISTRESS. TELE MONITOR IS SINUS RHYTHM. RFA#20 AND LAC#18 RUNNING NS@75ML/HR. SHIN CATHETER IS MAINTAINED, OUTPUT 525. PATIENT IS THREATENING TO LEAVE AMA THIS MORNING. BED REMAINS LOW AND LOCKED, HOB ELEVATED IN SEMI FOWLERS, SIDE RIALS UP X2, CALL LIGHT WITHIN REACH. WILL ENDORSE TO ONCOMING SHIFT.
--- NOTE | 2021-06-18 09:15 | NUR ---
RN NOTE SHIN CATH, IV SITES AND ID BAND REMOVED. PATIENT SIGNED AMA FORM.
--- NOTE | 2021-06-18 09:42 | NUR ---
RN NOTE ASSISTED PATIENT TO RESTROOM. AMBULATES STEADILY. ABLE TO VOID AND HAD BOWEL MOVEMENT. WALKED WITH PATIENT TO ER TO FIND HIM A SHIRT AND ESCORTED PATIENT OUTSIDE OF BUILDING WITH NO INCIDENT. 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 HE WAS ADAMANT THAT HE WAS FINE AND WAS INSISTENT ON LEAVING.
== END 2021-06-18 11:28 | disposition left against medical advice (07) | DRG 812 ==
LOC: ER 23:11 → EDBD 06-14 02:05 → ICU 06-14 02:05
PROVIDERS: ADMIT Student in an Organized Health Care Education/Training Program; ATTEND Nurse Practitioner Acute Care
PROC: 5A1945Z Respiratory Ventilation, 24-96 Consecutive Hours (ICD-10-PCS; principal; 2021-06-14)
PROC: 0BH18EZ Insertion of Endotracheal Airway into Trachea, Via Natural or Artificial Opening Endoscopic (ICD-10-PCS; 2021-06-14)
DX: T43.621A Poisoning by amphetamines, accidental (unintentional), initial encounter (principal); N17.0 Acute kidney failure with tubular necrosis; J69.0 Pneumonitis due to inhalation of food and vomit; G92.8 Other toxic encephalopathy; J96.01 Acute respiratory failure with hypoxia; J96.02 Acute respiratory failure with hypercapnia; E72.20 Disorder of urea cycle metabolism, unspecified; Z20.822 Contact with and (suspected) exposure to COVID-19; E87.2 Acidosis; R74.01 Elevation of levels of liver transaminase levels; Y92.099 Unspecified place in other non-institutional residence as the place of occurrence of the external cause; Z59.00 Homelessness unspecified; F19.10 Other psychoactive substance abuse, uncomplicated; K76.0 Fatty (change of) liver, not elsewhere classified
CPT/HCPCS: 31720; 36415; 36600; 70450-TC; 71045-TC; 72125-TC; 76705-TC; 80048-TC; 80053-TC; 80076-TC; 80202-TC; 81001; 82140-TC; 82803-TC; 83605-TC; 83735-TC; 84100-TC; 84443-TC; 84478-TC; 84484-TC; 85025-TC; 85730-TC; 87040-TC; 87081-TC; 87086-TC; 93307-TC; 94002-TC; 94003-TC; 94760-TC; 94799-TC; 99082-TC; C9113; C9803; G0378; G0480; J0330; J1630; J1650; J2310; J2405; J2543; J3370; J3490; J7030; J7050; J7060; L0172; U0003

== ENCOUNTER 2021-06-22 11:01 | Emergency (ER) | payer OTHER ==
[~2021-06-22] VITALS: Ht 172.7 cm; Wt 74.8 kg
--- NOTE | 2021-06-22 11:40 | NUR ---
C/O DIFFICULTY SWALLOWING " I WAS IN ICU, HAD TUBE IN MY THROAT, I STILL HAVE MEAT HANGING IN MY THROAT ". PT AAOX4, VSS. SPEAKING IN FULL SENTENCES, RR EVEN & UNLABORED. DENIES CP, DIZZINESS, N/V AT THIS TIME. AWAITING EVAL BY KINSEY. WILL CONT TO MONITOR.
[2021-06-22] MEDS ORDERED: MAG HYDROX/AL HYDROX/SIMETH 30 ML UDC ONE (12:58)
[2021-06-22] MEDS ORDERED: oxyCODONE/APAP (5/325 MG) 1 UDTAB TABLET ONE (12:58)
[2021-06-22] MEDS ORDERED: LIDOCAINE VISCOUS 2% UD 15 ML UDC ONE (12:58)
[2021-06-22] MEDS ORDERED: oxyCODONE/APAP (5/325 MG) 1 UDTAB TABLET PO ONE (13:00)
[2021-06-22] MEDS ORDERED: MAG HYDROX/AL HYDROX/SIMETH 30 ML UDC PO ONE (13:00)
[2021-06-22] MEDS ORDERED: LIDOCAINE VISCOUS 2% UD 15 ML UDC MM ONE (13:00)
--- NOTE | 2021-06-22 13:02 | NUR ---
MEDICATED PER ERMD ORDER, PT RAFAEL WELL. WILL CONT TO MONITOR.
[2021-06-22] MEDS ORDERED: OXYC-128 PO (13:20)
[2021-06-22] MEDS ORDERED: MAG355OR18 PO (13:20)
[2021-06-22 13:30] VITALS: BP 118/78
--- NOTE | 2021-06-22 13:30 | NUR ---
Patient discharged to home in stable condition. Written and verbal after care instructions given. Patient verbalizes understanding of instruction.
== END 2021-06-22 13:36 | disposition home or self-care (01) ==
LOC: ER 12:10
DX: R13.10 Dysphagia, unspecified (principal); Z59.00 Homelessness unspecified

== ENCOUNTER 2021-12-18 12:03 | Emergency (ER) | payer OTHER ==
[~2021-12-18] VITALS: Ht 172.7 cm; Wt 88.0 kg
[~2021-12-18 12:03] MED LIST: MAG355OR18 PO; OXYC-128 PO
--- NOTE | 2021-12-18 12:12 | NUR ---
PT CAME TO ER FOR STAPLE REMOVAL OF L UPPER EXTREMITY S/P SKIN GRAFT 1 MONTH AGO. AAOX4, SUTURES NOTED ALONG L FOREARM AND UPPER ARM. BREATHING EVEN AND UNLABORED, PULSES 2+ BILATERALLY. CMS INTACT.
--- NOTE | 2021-12-18 12:30 | NUR ---
Patient discharged to home in stable condition. Written and verbal after care instructions given. Patient verbalizes understanding of instruction.
[2021-12-18 12:36] VITALS: BP 138/82
== END 2021-12-18 12:30 | disposition home or self-care (01) ==
LOC: ER 12:14
DX: Z48.00 Encounter for change or removal of nonsurgical wound dressing (principal); Z59.00 Homelessness unspecified; Z79.899 Other long term (current) drug therapy

== ENCOUNTER 2022-01-13 02:47 | Emergency (ER) | payer OTHER ==
--- NOTE | 2022-01-13 03:15 | NUR ---
PATIENT CALLED TO NO ANSWER
--- NOTE | 2022-01-13 03:45 | NUR ---
PATIENT NOT IN WAITING ROOM
== END 2022-01-13 03:50 | disposition left against medical advice (07) ==
LOC: ER 03:07
DX: Z53.21 Procedure and treatment not carried out due to patient leaving prior to being seen by health care provider (principal)

== ENCOUNTER 2022-05-23 18:16 | Emergency (ER) | payer OTHER ==
--- NOTE | 2022-05-23 18:18 | NUR ---
called to triage,no answer
--- NOTE | 2022-05-23 18:48 | NUR ---
called to triage,no answer
== END 2022-05-23 18:49 | disposition left against medical advice (07) ==
LOC: ER 18:20
DX: Z53.21 Procedure and treatment not carried out due to patient leaving prior to being seen by health care provider (principal)

== ENCOUNTER 2022-08-02 03:43 | Emergency (ER) | payer OTHER ==
[~2022-08-02] VITALS: Ht 170.2 cm; Wt 68.0 kg
[2022-08-02 04:10] VITALS: BP 143/71
[2022-08-02] MEDS ORDERED: ACETAMINOPHEN ES 500 MG TABLET ONE (04:26)
[2022-08-02] MEDS: ACETAMINOPHEN ES 500 MG TABLET PO ONE (04:28)
--- NOTE | 2022-08-02 04:28 | NUR ---
Patient discharged to home in stable condition. Written and verbal after care instructions given. Patient verbalizes understanding of instruction.
== END 2022-08-02 04:29 | disposition home or self-care (01) ==
LOC: ER 03:45
DX: M79.632 Pain in left forearm (principal); Z59.00 Homelessness unspecified; Z79.899 Other long term (current) drug therapy

== ENCOUNTER 2024-01-14 15:57 | Inpatient (IN) | payer OTHER ==
[~2024-01-14] VITALS: Ht 172.7 cm; Wt 75.3 kg
[~2024-01-14 15:57] MED LIST changes: +DIPH25TA25 PO; +DOXY100T2 PO; +TYL2T PO
[2024-01-14 20:00] VITALS: BP 120/73; TEMP 99.7; O2SAT 96
[2024-01-14] MEDS: ENOXAPARIN SODIUM 40 MG/0.4 ML DISP.SYRIN SQ SCH (22:00)
[2024-01-14] MEDS ORDERED: ONDANSETRON HCL/PF 4 MG/2 ML VIAL IVP PRN (22:00)
[2024-01-14] MEDS ORDERED: ACETAMINOPHEN 325 MG TABLET PO PRN (22:00)
[2024-01-14] MEDS ORDERED: IBUPROFEN 400 MG TABLET PO PRN (23:30)
[2024-01-15] VITALS: BP 111/75; TEMP 98.8; O2SAT 97
[2024-01-15 00:12] VITALS: BP 111/75; TEMP 98.8; O2SAT 97
[2024-01-15] MEDS ORDERED: VANCOMYCIN 1 GM /D5W 250 ML PB IV ONE (01:00)
[2024-01-15] MEDS: VANCOMYCIN 1.5 GM in IV D5W 500 ML IV ONE (01:13)
[2024-01-15] MEDS: MORPHINE SULFATE INJ 4 MG/ML DISP.SYRIN IV PRN (01:39)
[2024-01-15] MEDS ORDERED: CEFEPIME 1 GM VIAL ONE (02:30)
[2024-01-15] MEDS: CEFEPIME 2 GM in IV D5W 100 ML IV ONE (03:30)
[2024-01-15 04:32] VITALS: BP 95/96; TEMP 97.9; O2SAT 97
[2024-01-15 04:39] VITALS: O2SAT 97
[2024-01-15 05:13] LABS: BASOPHILS % (AUTO) 0.3 % (0.0-2.0); CALCIUM, SERUM 9.2 mg/dL (8.5-10.1); CREATININE 1.1 mg/dL (0.6-1.3); EOSINOPHILS # (AUTO) 0.2 K/uL (0.0-0.7); EOSINOPHILS % (AUTO) 1.6 % (0.0-6.0); HEMATOCRIT 38 % (39-51); HEMOGLOBIN 12.8 g/dL (13.5-17.5); LYMPHOCYTES # (AUTO) 0.7 K/uL (0.8-4.8); MAGNESIUM 2.4 mg/dL (1.8-2.4); MEAN CORPUSCULAR HEMOGLOBIN 30 PG (26.0-33.0); MEAN CORPUSCULAR HGB CONC 34 g/dl (31.0-36.0); MEAN CORPUSCULAR VOLUME 87 fL (80-96); MONOCYTES # (AUTO) 0.5 K/uL (0.1-1.30); MONOCYTES % (AUTO) 4.7 % (2.0-12.0); NEUTROPHILS # (AUTO) 8.5 K/uL (1.8-8.9); NEUTROPHILS % (AUTO) 86.4 % (43.0-81.0); PHOSPHORUS 2.8 mg/dL (2.5-4.9); PLATELET COUNT (AUTO) 236 K/uL (150-450); POTASSIUM 3.6 mmol/L (3.5-5.1); RED BLOOD CELL COUNT(AUTO) 4.32 MIL/uL (4.5-6.0); RED CELL DISTRIBUTION WIDTH 12.7 % (11.5-15.0); WHITE BLOOD COUNT (AUTO) 9.8 K/uL (4.3-11.0)
[2024-01-15 08:00] VITALS: BP 99/59; TEMP 97.7; O2SAT 94
[2024-01-15] MEDS ORDERED: VANCOMYCIN HCL 1.25 GM in IV D5W 250 ML IV SCH (13:00)
[2024-01-15] MEDS ORDERED: CEFEPIME 2 GM in IV D5W 100 ML IV SCH (13:00)
== END 2024-01-15 10:15 | disposition left against medical advice (07) | DRG 720 ==
LOC: TELE 18:46
PROVIDERS: ADMIT Nurse Practitioner Acute Care; ATTEND Nurse Practitioner Acute Care
DX: A41.9 Sepsis, unspecified organism (principal); J96.01 Acute respiratory failure with hypoxia; J15.69 Pneumonia due to other Gram-negative bacteria; E87.1 Hypo-osmolality and hyponatremia; D64.9 Anemia, unspecified; S41.102A Unspecified open wound of left upper arm, initial encounter; E86.0 Dehydration; F10.10 Alcohol abuse, uncomplicated; F12.10 Cannabis abuse, uncomplicated; Z59.00 Homelessness unspecified; F11.10 Opioid abuse, uncomplicated; F15.10 Other stimulant abuse, uncomplicated; R74.8 Abnormal levels of other serum enzymes; X58.XXXA Exposure to other specified factors, initial encounter; Y93.89 Activity, other specified; Y92.89 Other specified places as the place of occurrence of the external cause
CPT/HCPCS: 36415; 80048-TC; 80061-TC; 83735-TC; 84100-TC; 84484-TC; 85025-TC; 93307-TC; A4223; G0378; J0692; J2270; J3370; J3371; J7050; J7060; J7070

== ENCOUNTER 2024-03-25 20:26 | Emergency (ER) | payer OTHER ==
[~2024-03-25] VITALS: Ht 172.7 cm; Wt 70.3 kg
[2024-03-25] MEDS ORDERED: KETOROLAC TROMETHAMINE 15 MG/ML VIAL ONE (21:36)
[2024-03-25] MEDS: KETOROLAC TROMETHAMINE 15 MG/ML VIAL IM ONE (21:48)
[2024-03-25 21:49] VITALS: BP 141/87; TEMP 98.5
[2024-03-25 21:55] VITALS: O2SAT 98
[2024-03-25] MEDS ORDERED: ACET-2605 PO (22:27)
[2024-03-25] MEDS ORDERED: SULF1TAB47 PO (22:27)
[2024-03-25] MEDS ORDERED: SILV20CR13 TP (22:27)
[2024-03-25] MEDS ORDERED: IBUP-1955 PO (22:27)
[2024-03-25] MEDS ORDERED: CEPH500C2 PO (22:27)
[2024-03-25] MEDS: SILVER SULFADIAZINE CREAM 25 GM TUBE TP ONE (22:30)
[2024-03-25] MEDS ORDERED: SILVER SULFADIAZINE CREAM 25 GM TUBE ONE (22:36)
[2024-03-25] MEDS: CEPHALEXIN MONOHYDRATE 500 MG CAPSULE PO ONE (22:40)
[2024-03-25] MEDS ORDERED: SULFAMETH/TRIMETH 800/160 MG 1 UDTAB TABLET ONE (22:40)
[2024-03-25] MEDS ORDERED: HYDROCODONE/APAP 5/325MG TABLET ONE (22:40)
[2024-03-25] MEDS ORDERED: CEPHALEXIN MONOHYDRATE 500 MG CAPSULE PO ONE (22:40)
[2024-03-25] MEDS: HYDROCODONE/APAP 5/325MG TABLET PO ONE (22:44)
[2024-03-25] MEDS: SULFAMETH/TRIMETH 800/160 MG 1 UDTAB TABLET PO ONE (22:44)
== END 2024-03-25 22:00 | disposition home or self-care (01) ==
LOC: ER 20:27
DX: L02.512 Cutaneous abscess of left hand (principal); Z79.1 Long term (current) use of non-steroidal anti-inflammatories (NSAID); Z79.899 Other long term (current) drug therapy; Z59.00 Homelessness unspecified
CPT/HCPCS: 99284; 10060; 96372; J1885